=== PATIENT | female | born 1940 | race Caucasian/White ===

== ENCOUNTER → 2016-11-25 | Outpatient (REF) | payer MEDICARE ==
[2016-11-25 10:28] LABS: BASO # 0.1 K/mm3 (0.0-0.2); BASO % 0.8 % (0.0-1.0); EOS # 0.4 K/mm3 (0.0-0.50); EOS % 4.2 % (0.0-3.0); LARGE UNSTAINED CELL # 0.1 K/mm3 (0.0-0.4); LARGE UNSTAINED CELL % 1.3 % (0.0-4.0); LYMPH # 1.9 K/mm3 (1.5-4.5); LYMPH % 21.9 % (24.0-44.0); MEAN CORPUSCULAR HEMOGLOBIN 31.3 pg (27.0-33.0); MEAN CORPUSCULAR HGB CONC 32.5 g/dl (32.0-36.5); MEAN CORPUSCULAR VOLUME 96.2 fl (80.0-96.0); MONO # 0.5 K/mm3 (0.0-0.8); MONO % 6.3 % (0.0-5.0); NEUTROPHILS # 5.6 K/mm3 (1.8-7.7); NEUTROPHILS % 65.6 % (36.0-66.0); PLATELET COUNT, AUTOMATED 282 k/mm3 (150-450); RED CELL DISTRIBUTION WIDTH 12.8 % (11.5-14.5); WHITE BLOOD COUNT 8.6 K/mm3 (4.0-10.0)
[2016-11-25 10:42] LABS: ERYTHROCYTE SEDIMENTATION RATE 22 mm/hr (0-30)
[2016-11-25 10:52] LABS: ALBUMIN 3.5 GM/DL (3.2-5.2); ALBUMIN/GLOBULIN RATIO 1.35 (1.00-1.93); ALKALINE PHOSPHATASE 63 U/L (45-117); ALT/SGPT 23 U/L (12-78); ANION GAP 6 MEQ/L (8-16); AST/SGOT 13 U/L (15-37); BILIRUBIN,TOTAL 0.4 MG/DL (0.2-1.0); BLOOD UREA NITROGEN 16 MG/DL (7-18); CALCIUM LEVEL 8.7 MG/DL (8.8-10.2); CARBON DIOXIDE LEVEL 29 MEQ/L (21-32); CHLORIDE LEVEL 105 MEQ/L (98-107); CHOLESTEROL LEVEL 233 MG/DL (<200); CREATININE FOR GFR 0.77 MG/DL (0.55-1.02); GLOMERULAR FILTRATION RATE > 60.0 (>39); GLUCOSE, FASTING 80 MG/DL (83-110); POTASSIUM SERUM 4.4 MEQ/L (3.5-5.1); SODIUM LEVEL 140 MEQ/L (136-145); TOTAL PROTEIN 6.1 GM/DL (6.4-8.2); TRIGLYCERIDES LEVEL 129 MG/DL (<150)
[2016-11-25 10:53] LABS: FREE T4 1.01 NG/DL (0.76-1.46)
[2016-11-25 12:49] LABS: VITAMIN B12 LEVEL 273 PG/ML
[2016-11-25 12:50] LABS: FOLATE 10.2 NG/ML
[2016-11-27 00:06] LABS: Lyme Disease IgG/IgM Antibodie <0.91 ISR (0.00-0.90); Lyme Disease IgM Ab Quantitati <0.80 index (0.00-0.79)
== END ==
LOC: M SFHCADAM 10:10
PROVIDERS: ATTEND Physician Assistant Medical
DX: R41.0 Disorientation, unspecified (principal); I25.810 Atherosclerosis of coronary artery bypass graft(s) without angina pectoris; I10 Essential (primary) hypertension; E78.5 Hyperlipidemia, unspecified

== ENCOUNTER → 2016-12-06 | Outpatient (CLI) | payer MEDICARE | LOC: M RAD 13:56 | PROVIDERS: ATTEND Physician Assistant Medical | DX: G31.89 Other specified degenerative diseases of nervous system (principal) ==

== ENCOUNTER → 2016-12-15 | Outpatient (REF) | payer MEDICARE ==
[2016-12-15 20:09] LABS: TOTAL PROTEIN 6.6 GM/DL (6.4-8.2)
[2016-12-16 10:01] LABS: ALBUMIN 3.85 GM/DL (3.29-5.55); ALBUMIN % 58.3 % (55.8-66.1)
== END ==
LOC: M SFHCADAM 15:26
PROVIDERS: ATTEND Physician Assistant Medical
DX: F03.90 Unspecified dementia, unspecified severity, without behavioral disturbance, psychotic disturbance, mood disturbance, and anxiety (principal); I25.810 Atherosclerosis of coronary artery bypass graft(s) without angina pectoris; I12.0 Hypertensive chronic kidney disease with stage 5 chronic kidney disease or end stage renal disease; E78.5 Hyperlipidemia, unspecified; E55.9 Vitamin D deficiency, unspecified; E53.8 Deficiency of other specified B group vitamins; N18.6 End stage renal disease